=== PATIENT | male | born 1980 | race Caucasian/White ===

== ENCOUNTER 2022-09-04 23:39 | Emergency (ER) | payer OTHER, SELFPAY ==
[2022-09-05 00:04] VITALS: BP 138/83; PULSE 85; RESP 18; TEMP 36.1; O2SAT 95
[2022-09-05] MEDS: diphenhydrAMINE HCl INJ 50 MG/ML VIAL IV PUSH (02:34)
[2022-09-05] MEDS: FAMOTIDINE 20 MG/2 ML VIAL IV PUSH (02:34)
[2022-09-05] MEDS: methylPREDNISolone SOD SUCC 125 MG VIAL IV PUSH (02:34)
--- NOTE | 2022-09-05 03:45 | ED.ALLEREA ---
HPI - Allergic Reaction General Chief complaint: Allergic Reaction <FRITZ Car Last Filed: 09/05/22 04:03> Stated complaint: rash <FRITZ Car Last Filed: 09/05/22 04:03> Time Seen by Provider: 09/05/22 01:36 <FRITZ Car Last Filed: 09/05/22 04:03> Source: patient <FRITZ Car Last Filed: 09/05/22 04:03> Mode of arrival: ambulatory <FRITZ Car Filed: 09/05/22 04:03> Limitations: no limitations <FRITZ Car Last Filed: 09/05/22 04:03> History of Present Illness HPI narrative: Patient is a 42 y/o male who presents to the ED with c/o allergic reaction. Patient reports he developed urticaria around 1 PM on 09/04. He states he first noticed them on his right sided abdomen, and then later noticed them on his groin, thighs, neck, around his eyes. He took 2 Benadryl around 945, but reports symptoms continue to worsen which prompted his presentation. Does report the rash is very itchy. Over the last 2 days, he has used a new tea tree oil soap. He also reports a new fabric softener over the last couple weeks. Denies any other new exposures, food, medicines. No history of anaphylaxis. He states he feels like his tongue is tingling, but denies any significant difficulty breathing, difficulty swallowing, swelling of lips or tongue or throat, changes in his voice, nausea, vomiting, chest pain, fevers. <FRITZ Car Last Filed: 09/05/22 04:03> Related Data Allergies/adverse reactions: Allergies Allergy/AdvReac Type Severity Reaction Status Date / Time oxycodone Allergy Hives Verified 09/05/22 02:34 <FRITZ Car Last Filed: 09/05/22 04:03> Review of Systems Review of Systems: CONSTITUTIONAL: Denies fever, chills, or sweats. ENT: Reports tingling in tongue. Denies changes in voice, swelling of tongue or lips, difficulty swallowing, drooling. CARDIOVASCULAR: Denies chest pain. RESPIRATORY: Denies dyspnea. GASTROINTESTINAL: Denies abdominal pain, nausea, vomiting, or diarrhea. SKIN: Reports diffuse urticaria, pruritus. <Cecille Mora PA-C - Last Filed: 09/05/22 04:03> All systems reviewed & are unremarkable except as noted in HPI and below <Cecille Mora PA-C - Last Filed: 09/05/22 04:03> PMFSH Past Medical History Medical History: Medical History (Updated 09/05/22 @ 03:51 by Cecille Mora PA-C) No pertinent past medical history <Cecille Mora PA-C - Last Filed: 09/05/22 04:03> Surgical History Surgical History: Surgical History (Updated 09/05/22 @ 03:51 by Cecille Mora PA-C) No pertinent past surgical history <Cecille Mora PA-C - Last Filed: 09/05/22 04:03> Social History Social History: Social History (Updated 09/05/22 @ 03:51 by Cecille Mora PA-C) Smoking status: Never smoker <Cecille Mora PA-C - Last Filed: 09/05/22 04:03> Exam Narrative: GENERAL: Well appearing, well-nourished, non-toxic, in no acute distress. HEAD: Normocephalic, atraumatic. EYES: PERRL/EOMI, conjunctivae clear bilaterally. Minimal periorbital swelling bilaterally. Urticaria around eyes. NOSE: Normal, no drainage. THROAT: Pharynx clear, no tonsillar hypertrophy or exudate. MMs moist. No swelling of lips, tongue, palate, uvula. Uvula midline. NECK: Supple. No adenopathy, no masses. RESPIRATORY: Airway patent, respirations nonlabored. Clear to auscultation bilaterally, no rales, rhonchi, wheezing. No distress. No stridor. CARDIOVASCULAR: Regular rate and rhythm without murmurs, rubs, or gallops. Radial pulses 2+ and equal bilaterally. ABDOMINAL: Soft, nontender, nondistended, no hepatosplenomegaly. Normoactive BS. MUSCULOSKELETAL: Moves all extremities. Strength/ROM intact without gross deformities. SKIN: Warm, dry, normal color. Scattered urticaria to right sided trunk, groin, tania
== END 2022-09-05 04:01 | disposition home or self-care (01) ==
PROVIDERS: Emergency Provider Emergency Medicine
DX: L50.9 Urticaria, unspecified (principal); T78.40XA Allergy, unspecified, initial encounter
CPT/HCPCS: 96374; 96375; 99284; J1200; J2930